=== PATIENT | male | born 1950 | race Caucasian/White ===

== ENCOUNTER 2018-03-13 13:25 | Emergency (ER) | payer MEDICARE, SELFPAY ==
[2018-03-13 13:37] VITALS: BP 220/120; PULSE 64; RESP 14; TEMP 36.7; O2SAT 98; BMI 29.2
[2018-03-13 13:58] VITALS: BP 213/108; PULSE 68; RESP 14; O2SAT 98
[2018-03-13 14:06] LABS: Add Manual Diff / Slide Review NO; Basophils Percent Auto 0.7 % (0-2); Eosinophils Percent Auto 3.6 % (2-4); Hematocrit 42.3 % (41-53); Hemoglobin 14.6 g/dL (13.5-17.5); Lymphocytes Percent Auto 41.2 % (25-40); Mean Corpuscular HGB Conc 34.5 % (30-36); Mean Corpuscular Hemoglobin 32.5 PG (26-34); Mean Corpuscular Volume 94.1 fL (80-100); Monocytes Percent Auto 8.6 % (3-14); Neutrophils Absolute Auto 3100 /uL (3000-5900); Neutrophils Percent Auto 45.9 % (50-75); Platelet Count 240 X10^3/uL (150-400); Red Cell Distribution Width 13.8 % (11.6-14.8); White Blood Cell Count 6.6 X10^3/uL (4.5-11.0)
[2018-03-13 14:15] LABS: BUN Creatinine Ratio 25.6 (6-22); Blood Urea Nitrogen 23 mg/dL (9-20); Calcium 9.7 mg/dL (8.4-10.2); Carbon Dioxide 28 mmol/L (22-32); Chloride 103 mmol/L (98-107); Estimated Glomerular Filt Rate > 60.0 mL/min (>60); Glucose 97 mg/dL (80-110); HEMOLYSIS < 15 (0-50); Potassium 3.9 mmol/L (3.4-5.1); Sodium 143 mmol/L (137-145)
[2018-03-13 14:27] LABS: Troponin I 0.022 ng/mL (0.01-0.034)
[2018-03-13 15:11] VITALS: BP 164/87; PULSE 55; RESP 14
--- NOTE | 2018-03-13 15:51 | ED_ITS ---
HPI - General Adult <KUMAR Long - Last Filed: 03/13/18 22:01> General Chief complaint: Hypertension Stated complaint: elevated BP Time Seen by Provider: 03/13/18 13:59 History of Present Illness HPI narrative: 67-year-old male with history of hypertension here for complaint of high blood pressure that he has noticed over the past week. He states that he was seen for shingles in the told him that he had high blood pressure at that visit. He states that he checked his blood pressure at home with a blood pressure cuff earlier today and his blood pressure was elevated at that time as well. He was last seen by his primary care provider in the fall of last year and was taken off of his blood pressure medications as he was not having any blood pressure issues at that time. He has since retired and has moved to this area and has not established primary care appear is yet. He denies any headaches, discomfort chest pain or shortness of breath. Related Data Home Medications Medication Instructions Recorded Confirmed Vitamin D3 Complete 5,000 units PO DAILY 03/13/18 03/13/18 Previous Rx's Medication Instructions Recorded hydrochlorothiazide 50 mg PO DAILY #30 tab 03/13/18 Allergies Allergy/AdvReac Type Severity Reaction Status Date / Time No Known Drug Allergies Allergy Verified 03/13/18 13:41 Review of Systems <KUMAR Long - Last Filed: 03/13/18 22:01> Constitutional Denies chills, Denies fatigue, Denies fever(s), Denies lethargy and Denies weakness Eyes Denies change in vision, Denies eye discharge, Denies irritation and Denies loss of vision ENT Ears, Nose, Mouth, and Throat: Denies change in voice, Denies neck pain and Denies sore throat Cardiovascular Denies dyspnea and Denies dyspnea on exertion Comments: Elevated blood pressure Respiratory Denies cough, Denies dyspnea, Denies dyspnea on exertion and Denies wheezing Genitourinary Denies hematuria, Denies flank pain, Denies urinary incontinence and Denies urinary urgency Musculoskeletal Denies neck pain Integumentary/Breasts Denies pruritus, Denies erythema, Denies rash and Denies wounds Neurologic Denies confusion, Denies loss of vision and Denies weakness Psychiatric Denies anxiety, Denies confusion, Denies depression, Denies homicidal ideation and Denies suicidal ideation Endocrine Denies fatigue and Denies flushing Allergic/Immunologic Denies wheezing Exam <KUMAR Long - Last Filed: 03/13/18 22:01> Initial Vital Signs Initial Vital Signs: Vital Signs Temperature 98.1 F 03/13/18 13:37 Pulse Rate 64 03/13/18 13:37 Respiratory Rate 14 03/13/18 13:37 Blood Pressure 220/120 H 03/13/18 13:37 Pulse Oximetry 98 03/13/18 13:37 Const General: cooperative and well developed Nutritional Appearance: well nourished Orientation: alert, awake, oriented x3 and not confused HENLA Mouth: oral mucosae normal and moist mucous membranes Eyes Conjunctivae: conjunctivae normal Sclera: sclerae normal Pupils: PERRL Neck Neck: normal visual inspection, trachea midline, No lymphadenopathy, No midline deformity and No JVD Lymphatic: No lymphedema Resp Effort & Inspection: normal respiratory effort, able to speak in complete sentences, no respiratory distress and no use of accessory muscles Auscultation: clear to auscultation bilaterally, no rales, no rhonchi and no wheezes Cardio Rate: regular rate Rhythm: regular rhythm Heart Sounds: no click, no gallops, no murmurs and no rubs <DO Sidra Garcias Last Filed: 03/21/18 18:04> Initial Vital Signs Initial Vital Signs: Vital Signs Temperature 98.1 F 03/13/18 13:37 Pulse Rate 64 03/13/18 13:37 Respiratory Rate 14 03/13/18 13:37 Blood Pressure 220/120 H 03/13/18 13:37 Pulse Oximetry 98 03/13/18 13:37 Course <KUMAR Long - Last Filed: 03/13/18 22:01> Orders Ordered: ED Orders 03/13/18 13:54 Basic Metabolic Panel Stat Complete Blood Count AUTO DIFF Stat Troponin I Stat 03/13/18 13:57 EKG-12 Lead Stat Vital Signs - 8 hr 03/13/18 15:11 Pulse Rate 55 L Respiratory Rate 14 Blood Pressure [Left Arm] 164/87 H <DO Sidra Garcias Last Filed: 03/21/18 18:04> Orders Ordered: ED Orders 03/13/18 13:54 Basic Metabolic Panel Stat Complete Blood Count AUTO DIFF Stat Troponin I Stat 03/13/18 13:57 EKG-12 Lead Stat Vital Signs - 8 hr 03/13/18 15:11 Pulse Rate 55 L Respiratory Rate 14 Blood Pressure [Left Arm] 164/87 H Medical Decision Making <KUMAR Long - Last Filed: 03/13/18 22:01> MDM Narrative Medical decision making narrative: CBC and chemistry was negative for any acute findings. Troponin was obtained and was negative. EKG shows sinus bradycardia with no ST elevation or depression. Patient's blood pressure reduced while he was here in the emergency room after relaxation. Refill of HCTZ is provided he is encouraged to follow up with primary care provider or establish new primary care up here in follow-up within the next week for re-evaluation. He is encouraged to monitor his blood pressure and keep a log. For any worsening symptoms return to the emergency room. Lab Data Result diagrams: 03/13/18 13:54 03/13/18 13:54 Lab Results 03/13/18 03/13/18 03/13/18 Range/Units 13:54 13:54 13:54 WBC 6.6 (4.5-11.0) X10^3/uL RBC 4.50 (4.5-5.9) X10^6/uL Hgb 14.6 (13.5-17.5) g/dL Hct 42.3 (41-53) % MCV 94.1 (80-100) fL MCH 32.5 (26-34) PG MCHC 34.5 (30-36) % RDW 13.8 (11.6-14.8) % Plt Count 240 (150-400) X10^3/uL Neut % (Auto) 45.9 L (50-75) % Lymph % (Auto) 41.2 H (25-40) % [place] % (Auto) 8.6 (3-14) % Eos % (Auto) 3.6 (2-4) % Baso % (Auto) 0.7 (0-2) % Neut # (Auto) 3100 (4813-1336) /uL Sodium 143 Cancelled (137-145) mmol/L Potassium 3.9 Cancelled (3.4-5.1) mmol/L Chloride 103 Cancelled (98-107) mmol/L Carbon Dioxide 28 Cancelled (22-32) mmol/L BUN 23 H Cancelled (9-20) mg/dL Creatinine 0.90 Cancelled (0.66-1.25) mg/dL Estimated GFR > 60.0 Cancelled (>60) mL/min BUN/Creatinine Ratio 25.6 H Cancelled (6-22) Glucose 97 Cancelled (80-110) mg/dL Calcium 9.7 Cancelled (8.4-10.2) mg/dL Troponin I 0.022 (0.01-0.034) ng/mL Specimen Hemolysis Cancelled ECG Data Interpretation: EKG shows sinus bradycardia with no ST elevation or depression. No ectopy. Ventricular rate of 59. Pr interval 170. QRS duration of 112. QT of 405. <Lul Joshi DO - Last Filed: 03/21/18 18:04> Lab Data Lab Results 03/13/18 03/13/18 03/13/18 Range/Units 13:54 13:54 13:54 WBC 6.6 (4.5-11.0) X10^3/uL RBC 4.50 (4.5-5.9) X10^6/uL Hgb 14.6 (13.5-17.5) g/dL Hct 42.3 (41-53) % MCV 94.1 (80-100) fL MCH 32.5 (26-34) PG MCHC 34.5 (30-36) % RDW 13.8 (11.6-14.8) % Plt Count 240 (150-400) X10^3/uL Neut % (Auto) 45.9 L (50-75) % Lymph % (Auto) 41.2 H (25-40) % [place] % (Auto) 8.6 (3-14) % Eos % (Auto) 3.6 (2-4) % Baso % (Auto) 0.7 (0-2) % Neut # (Auto) 3100 (3488-3271) /uL Sodium 143 Cancelled (137-145) mmol/L Potassium 3.9 Cancelled (3.4-5.1) mmol/L Chloride 103 Cancelled (98-107) mmol/L Carbon Dioxide 28 Cancelled (22-32) mmol/L BUN 23 H Cancelled (9-20) mg/dL Creatinine 0.90 Cancelled (0.66-1.25) mg/dL Estimated GFR > 60.0 Cancelled (>60) mL/min BUN/Creatinine Ratio 25.6 H Cancelled (6-22) Glucose 97 Cancelled (80-110) mg/dL Calcium 9.7 Cancelled (8.4-10.2) mg/dL Troponin I 0.022 (0.01-0.034) ng/mL Specimen Hemolysis Cancelled Discharge Plan Departure Patient Disposition: Home, Self-Care Clinical Impression: Hypertension Discharge Date/Time: 03/13/18 16:16 Interventions: ED Discharge Assessment Last Done: 03/13/18 16:16 Instructions: DI for High Blood Pressure Activity Restrictions/Additional Instructions: Blood pressure was elevated today however it did reduce after relaxing in the emergency room some today. Try relaxation techniques if you feel like your blood pressure is elevated or you feel anxious. Refill of your HCTZ has been provided use as directed. Follow up with her primary care provider or establish primary care and follow up with primary care here in the next week for re-evaluation. Monitor blood pressure and keep a log for evaluation by primary care. Laboratory results an EKG today were unremarkable. For any worsening symptoms return to the emergency room. Prescriptions: New hydrochlorothiazide 50 mg tablet 50 mg PO DAILY Qty: 30 RF: 0 No Action Vitamin D3 Complete 5,000 units PO DAILY RF: 0 Referrals: [facility] [Provider Group] <Lul Joshi DO - Last Filed: 03/21/18 18:04> Cosign ED Attending Jagdish Attestation: I was immediately available in the department for consultation. Documentation has been reviewed. I agree with assessment and plan.
== END 2018-03-13 16:16 | disposition home or self-care (01) ==
PROVIDERS: Emergency Medicine; Emergency Provider Nurse Practitioner Family
DX: I10 Essential (primary) hypertension (principal)
CPT/HCPCS: 80048; 84484; 85025; 93005; 99282; 99284

== ENCOUNTER → 2019-03-26 10:38 | Outpatient (CLI) | payer MEDICARE, SELFPAY ==
--- NOTE | 2019-03-26 | DI.US.S_ITS ---
PROCEDURE: US CHEST COMPARISON: None. INDICATIONS: SOFT TISSUE MASS FINDINGS: 2 apparent lipomas are present at the chest/epigastrium junction on the right the more lateral of which measures 1.8 x 1.6 x 0.5 cm and the larger of which is more near the midline measuring 4.5 x 3.7 x 0.8 cm. IMPRESSION: 2 adjacent presumed lipomas present as cause of palpable abnormality right anterior inferior ribs. Continued close clinical followup is recommended and if clinical concerns persist or increase follow up by dedicated contrast enhanced body wall MR scanning may be warranted. Dictated by: Alfred Romeo M.D. on 03/26/2019 at 14:35 Approved by: Alfred Romeo M.D. on 03/26/2019 at 14:36
== END ==
PROVIDERS: PCP Internal Medicine; Visit Provider Internal Medicine
DX: M79.9 Soft tissue disorder, unspecified (principal)
CPT/HCPCS: 76604; 76882

== ENCOUNTER 2021-11-11 16:00 | Emergency (ER) | payer MEDICARE, OTHER, SELFPAY ==
[2021-11-11 16:07] VITALS: BP 170/81; PULSE 60; RESP 15; TEMP 36.2; O2SAT 97; BMI 30.1
--- NOTE | 2021-11-11 19:00 | ED_ITS ---
HPI - SOB/Dyspnea General Chief Complaint: Shortness of Breath/Dyspnea Stated Complaint: short of breath Time Seen by Provider: 11/11/21 16:15 Source: patient Mode of arrival: Ambulatory Limitations: no limitations History of Present Illness HPI Narrative: 71M former smoker with history of HTN presents at the suggestion of a family friend. She has some home device that obtained an EKG and had a note that he has a widened QRS so she told him to come. He denies any CP, N/V, unexplained diaphoresis, exercise intolerance or other. He states that he has had some mild shortness of breath for many months and his primary care provider has been evaluating him, even did all whole slew of labs last week. He denies any unexplained diaphoresis in is at his baseline. He states that he absolutely would not be here if it were for his friend and her recommendations based on the EKG. He denies any unexplained weight gain, lower extremity swelling or orthopnea Related Data Home Medications Medication Instructions Recorded Confirmed Vitamin D3 Complete 5,000 units PO DAILY 03/13/18 03/13/18 Previous Rx's Medication Instructions Recorded hydrochlorothiazide 50 mg tablet 50 mg PO DAILY #30 tab 03/13/18 Allergies Allergy/AdvReac Type Severity Reaction Status Date / Time No Known Drug Allergies Allergy Verified 11/11/21 16:07 Review of Systems Review of Systems Narrative: GENERAL: Denies chills, fatigue, malaise, fever, sweats. HEENT: Denies sinus pain, ear pain, sore throat, difficulty swallowing, dizziness. RESPIRATORY: See HPI. CARDIOVASCULAR: See HPI GASTROINTESTINAL: Denies nausea, vomiting, abdominal pain, diarrhea, constipation, melena. : Denies dysuria, frequency, incontinence, hematuria, urinary retention. MUSCULOSKELETAL: denies weakness, joint pain, or bony pain SKIN: Denies rash, skin lesions, or other NEUROLOGIC: Denies weakness, headache, numbness, change in speech, confusion, seizures, incoordination. PSYCHIATRIC: No concerning psychosocial issues. 12 point review of systems is negative except for those stated above Patient History Medical History Hypertension Social History Smoking Status: Former smoker Smoking Status: Former smoker alcohol intake frequency: a few times a week Substance Use Type: marijuana Exam Narrative Exam Narrative: GENERAL: [71] year old patient appears stated age. Well-developed patient, in mild distress. HEAD: Atraumatic. Normocephalic. EYES: Pupils equal round and reactive. Extraocular motions intact. No scleral icterus. No injection or drainage. ENT: Nose without bleeding, purulent drainage. Throat without erythema, tonsillar hypertrophy or exudate. Airway patent. NECK: Trachea midline. Non tender CARDIOVASCULAR: Regular rate and rhythm without murmurs, gallops, or rubs. RESPIRATORY: Clear to auscultation. Breath sounds equal bilaterally. No wheezes, rales, or rhonchi. GASTROINTESTINAL: Abdomen soft, non-tender, nondistended. EXTREMITIES: No edema or joint tenderness. BACK: Nontender without deformity or crepitance. No flank tenderness. NEURO: AOx3. SKIN: No rash or erythema of visible areas Initial Vital Signs Initial Vital Signs: Vital Signs Temperature 97.1 F L 11/11/21 16:07 Pulse Rate 60 11/11/21 16:07 Respiratory Rate 15 11/11/21 16:07 Blood Pressure 170/81 H 11/11/21 16:07 Pulse Oximetry 97 11/11/21 16:07 Course Orders Ordered: ED Orders 11/11/21 16:15 EKG-12 Lead Stat Vital Signs Vital signs: Vital Signs - 8 hr 11/11/21 16:07 Temperature 97.1 F L Pulse Rate 60 Respiratory Rate 15 Blood Pressure 170/81 H Pulse Oximetry 97 MDM - SOB/Dyspnea ECG Data Interpretation: EKG is sinus bradycardia with rate of 54and free of any signs of ischemia or ectopy. No ST segmental elevation or depression. No T wave inversions. QRS 106, [place] 158. Incomplete right bundle branch block noted on prior EKG from March of 2018, essentially unchanged [facility] Narrative Medical decision making narrative: Patient has very reassuring history and physical exam. He has no new or evolving symptoms. EKG is unchanged over the past 4 years. Vital signs are stable and reassuring. He states he would not be here were not for the suggestion of his friend based on the abnormal EKG she obtained at home. We had an extensive discussion at the bedside an opportunity to and play sure decision making. We discussed doing a large workup today including labs and imaging but elect to hold off as he has had symptoms for many months with no change, feels at his baseline. A large selection of labs was obtained last week (and normal) and his primary care provider is pursuing an outpatient Cardiology evaluation. Return precautions given and questions answered to his apparent satisfaction Discharge Plan Departure Patient Disposition: Home Clinical Impression: Chronic shortness of breath Instructions: DI for Shortness of Breath Activity Restrictions/Additional Instructions: *You have been diagnosed with [chronic shortness of breath and a questionably abnormal EKG. As we discussed your EKG is essentially unchanged from the last EKG we have on file from March of 2018. *What to do: *Please continue to take your regular medications as directed. [ ] New medication prescriptions sent to your pharmacy: [ ] [ ] New medication written as a paper prescription [x] No new medications given *Please follow up with your primary care provider in 2-3 days, call for an appointment. Let them know you were seen in the Emergency Department and that we ask that you be seen in follow up. We will electronically transmit a record of today's note if your PCP is in our system *As we discussed, it would absolutely be reasonable to pursue a cardiology referral with possible echocardiogram and/or stress test, but there is no indication today, particularly given the duration of your symptoms that we would need to hospitalize you or get this done emergently *Return to Emergency Department if you should have any new, worsening or concerning symptoms, such as [fever greater than 101 F, shaking chills, worsening pain, persistent vomiting or other bothersome symptoms] Prescriptions: No Action Vitamin D3 Complete 5,000 units PO DAILY 0RF hydrochlorothiazide 50 mg tablet 50 mg PO DAILY Qty: 30 0RF
== END 2021-11-11 17:44 | disposition home or self-care (01) ==
PROVIDERS: Emergency Provider Emergency Medicine
DX: R06.02 Shortness of breath (principal); R00.1 Bradycardia, unspecified
CPT/HCPCS: 93005; 93010; 99282